=== PATIENT | male | born 1965 | race Caucasian/White ===

== ENCOUNTER 2021-03-05 10:32 | Emergency (ER) | payer OTHER ==
[~2021-03-05] VITALS: Ht 175.3 cm; Wt 84.5 kg
[2021-03-05] MEDS ORDERED: PROPARACAINE HCL 0.5% 15 ML OPHTHALMIC SOLUTION OS ONE (11:00)
[2021-03-05] MEDS ORDERED: FLUORESCEIN SODIUM 1 MG STRIP OS ONE (11:00)
[2021-03-05] MEDS ORDERED: ACETAMINOPHEN 500 MG TABLET PO ONE (11:00)
[2021-03-05 11:48] VITALS: BP 110/60
== END 2021-03-05 11:48 | disposition home or self-care (01) ==
LOC: EMS 10:39
DX: B02.30 Zoster ocular disease, unspecified (principal)
CPT/HCPCS: 99283